=== PATIENT | female | born 1960 | race Caucasian/White ===

== ENCOUNTER 2019-10-08 01:36 | Day surgery (SDC) | payer OTHER, SELFPAY ==
[2019-10-06 14:03] VITALS: BMI 35.9
[2019-10-08 09:10] VITALS: BP 135/87; PULSE 73; RESP 20; TEMP 36.3; O2SAT 73; BMI 36.1
[2019-10-08] MEDS: LACTATED RINGERS 1,000 ML 150 ML IV CONT (09:55)
[2019-10-08] MEDS: AMPICILLIN 2 GM/NS 100 ML 2 GM/100 ML BAG IVPB (09:56)
--- NOTE | 2019-10-08 10:18 | PM.HPGS ---
History of Present Illness History of Present Illness Consent: Risks, benefits, and alternatives have been discussed and questions answered. Patient agrees to proceed with procedure. Chief complaint: reflux, neoplasm screening Narrative: Mamta Oglesby is a 59 year old female with chronic acid reflux. Whenever she tries to stop Nexium, her symptoms return. She briefly was better when she had lost some weight. She is also undergoing screening colonoscopy PMFSH Family History Family History Mother Hypertension Family history of hyperthyroidism Family history of malignant neoplasm of breast in first degree relative Father Family history of lung cancer Sibling Family history of malignant neoplasm of breast in first degree relative Family history of thyroid disease Other Cerebrovascular accident Social History Social History Smoking status: Former smoker Smoking end date: 07/28/87 Alcohol intake: current Substance use type: marijuana Gender identity (if verbalized by the patient): Female Meds Home Medications and Allergies Home Medications Medication Instructions Recorded Confirmed Type calcium carbonate [Calcium 500] 500 mg PO DAILY 10/06/19 10/06/19 History cyanocobalamin (vitamin B-12) 1,000 mcg PO DAILY 10/06/19 10/06/19 History [Vitamin B-12] esomeprazole magnesium [Nexium] 20 mg PO DAILY 10/06/19 10/06/19 History omega 7-icn-eut-fish oil [Fish Oil] 1 cap PO DAILY 10/06/19 10/06/19 History Allergies Allergy/AdvReac Type Severity Reaction Status Date / Time No Known Allergies Allergy Verified 10/08/19 09:49 Vital Signs Vital Signs - 24 hr 10/08/19 09:10 Temperature 36.3 C L Pulse Rate 73 Respiratory Rate 20 Blood Pressure 135/87 Pulse Oximetry 73 L Exam Resp: Auscultation: clear to auscultation bilaterally Cardio: Rate: regular rate Rhythm: regular rhythm GI: GI Palp: Yes Soft to palpation and No Tenderness to palpation present (GI) Assessment and Plan Assessment and plan (1) Gastroesophageal reflux disease: Code(s): K21.9 - Gastro-esophageal reflux disease without esophagitis Status: Acute Assessment and Plan: EGD with possible biopsy or dilatation or cautery. (2) Colon cancer screening: Code(s): Z12.11 - Encounter for screening for malignant neoplasm of colon Status: Acute Assessment and Plan: Colonoscopy with possible biopsy or polypectomy or cautery or injection of substances.
--- NOTE | 2019-10-08 10:23 | WPDANESEPPF ---
Anes - Initial Pre Proc Eval Procedure: Operation Date: 10/08/19 10:30 Proposed Procedures p Esophagogastroduodenoscopy & Screening Colonoscopy - Daniel Krause MD Date/Time: 10/08/19 10:23 Surgeon: Daniel Krause MD Pre Op Diagnosis: reflux, neoplasm screening Patient Data Age: 59 Gender: F Height: 5 ft 4 in Weight: 95.4 kg Last Vital Signs Temp 97.3 F L 10/08/19 09:10 Pulse 73 10/08/19 09:10 Resp 20 10/08/19 09:10 BP 135/87 10/08/19 09:10 Pulse Ox 73 L 10/08/19 09:10 Allergies Allergy/AdvReac Type Severity Reaction Status Date / Time No Known Allergies Allergy Verified 10/08/19 09:49 Home Medications Medication Instructions Recorded Confirmed Type calcium carbonate [Calcium 500] 500 mg PO DAILY 10/06/19 10/06/19 History cyanocobalamin (vitamin B-12) 1,000 mcg PO DAILY 10/06/19 10/06/19 History [Vitamin B-12] esomeprazole magnesium [Nexium] 20 mg PO DAILY 10/06/19 10/06/19 History omega 7-xvu-rrl-fish oil [Fish Oil] 1 cap PO DAILY 10/06/19 10/06/19 History Patient hx anesthesia problems: none Family hx anesthesia problems: none PMFSH Past Medical History Medical History (Updated 10/08/19 @ 10:23 by Trenton Roldan MD) Gastroesophageal reflux disease Family History Family History Mother Hypertension Family history of hyperthyroidism Family history of malignant neoplasm of breast in first degree relative Father Family history of lung cancer Sibling Family history of malignant neoplasm of breast in first degree relative Family history of thyroid disease Other Cerebrovascular accident Social History Social History Smoking status: Former smoker Smoking end date: 07/28/87 Alcohol intake: current Substance use type: marijuana Gender identity (if verbalized by the patient): Female Anes - Eval Final PreProcedure Day of Procedure 10/08/19 10:23 Patient weight: obese Heart: regular rate and rhythm Lungs: clear to auscultation Airway: Mallampati scale class II Neurological: alert and oriented Last oral intake: >/= 8 hours ASA classification: II Emergent: no Anesthetic plan: proceed Anesthesia type and monitoring: general GIVS and standard monitoring Informed Consent: The patient's anesthetic plan and its attendant risks and benefits were discussed with the patient/family/POA. Questions were solicited and answers provided to the satisfaction of the patient/family/POA.
[2019-10-08 11:01] VITALS: BP 135/88; PULSE 84; RESP 20; O2SAT 98
[2019-10-08 11:11] VITALS: BP 135/88; PULSE 69; RESP 18; O2SAT 98
[2019-10-08 11:21] VITALS: BP 114/71; PULSE 74; RESP 18; O2SAT 99
== END 2019-10-08 11:41 | disposition home or self-care (01) ==
PROVIDERS: PCP Internal Medicine; Visit Provider Internal Medicine Gastroenterology
PROC: 0DJ08ZZ Inspection of Upper Intestinal Tract, Via Natural or Artificial Opening Endoscopic (ICD-10-PCS; CPT 43235; principal; 2019-10-08 10:30)
DX: Z12.11 Encounter for screening for malignant neoplasm of colon (principal); D12.5 Benign neoplasm of sigmoid colon; K57.30 Diverticulosis of large intestine without perforation or abscess without bleeding; K21.9 Gastro-esophageal reflux disease without esophagitis; Z87.891 Personal history of nicotine dependence; F12.90 Cannabis use, unspecified, uncomplicated
CPT/HCPCS: 45385; 43239; 88305; J0290; J2704; J7120